=== PATIENT | female | born 1985 | race Caucasian/White ===

== ENCOUNTER 2017-04-07 10:19 | Emergency (ER) | payer BC ==
[2017-04-07 10:40] VITALS: BP 125/72
[2017-04-07] MEDS ORDERED: Albuterol/Ipratropium NEB.SOL* Albuterol 2.5 MG/Ipratropium 0.5 MG 3 ML INH ONE (10:51)
--- NOTE | 2017-04-07 10:53 | UC ---
Mei Garrett Thomas, scribed for Leilani Whiting MD on 04/07/17 at 1052 . Respiratory Complaint HPI - HPI Summary HPI Summary: The pt is a 31 y/o F with a Hx of asthma presenting to Urgent Care c/o labored breathing and feeling tight in lungs that she first noticed last night. The patient describes a feeling in her chest similar to heartburn that often occurs as she is having an asthma attack. 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 Pt denies any pain. She has never been on steroids for her asthma. no hospitalizations or intubations. Pt stats feels like her typical asthma which is triggered by stress. No abd pain. No n/v/d. No serna, uri sx Patients medication reviewed this visits - History of Current Complaint Chief Complaint: UCRespiratory Stated Complaint: ASTHMA Time Seen by Provider: 04/07/17 10:44 Hx Obtained From: Patient Hx Last Menstrual Period: iud Onset/Duration: Lasting Days - 1, Still Present Timing: Constant Severity Initially: Moderate Pain Intensity: 0 Pain Scale Used: 0-10 Numeric Aggravating Factors: Deep Breaths Alleviating Factors: Nothing Associated Signs And Symptoms: Positive: Dyspnea. Negative: Fever - Allergies/Home Medications Allergies/Adverse Reactions: Allergies Allergy/AdvReac Type Severity Reaction Status Date / Time No Known Allergies Allergy Verified 01/19/13 19:14 Home Medications: Home Medications Albuterol HFA INHALER* [Ventolin HFA Inhaler*] 1 puff INH Q4H PRN 04/07/17 [ History Confirmed 04/07/17] PMH/Surg Hx/FS Hx/Imm Hx Previously Healthy: No - NEGATIVE: DM Respiratory History: Asthma - Surgical History Surgical History: Yes Surgery Procedure, Year, and Place: sinus surgery age 13 - Family History Known Family History: Positive: Respiratory Disease - athma in siblings - Social History Occupation: Employed Full-time Lives: With Family Alcohol Use: Weekly Substance Use Type: Marijuana Substance Use Comment - Amount & Last Used: once a week Smoking Status (MU): Current Some Day Smoker Type: Cigarettes Amount Used/How Often: a few cigarettes a week Review of Systems Constitutional: Negative Respiratory: Other - tight breathing Cardiovascular: Other - Feeling similar to heartburn Neurological: Other - Dizziness Is Patient Immunocompromised?: No All Other Systems Reviewed And Are Negative: Yes Physical Exam Triage Information Reviewed: Yes Appearance: Well-Appearing, No Pain Distress, Well-Nourished Vital Signs: Initial Vital Signs Temp 98.3 F 04/07/17 10:37 Pulse 88 04/07/17 10:37 Resp 18 04/07/17 10:37 BP 125/72 04/07/17 10:37 Pulse Ox 100 04/07/17 10:37 Vital Signs Reviewed: Yes Eye Exam: Normal Eyes: Positive: Conjunctiva Clear. Negative: Discharge ENT Exam: Normal ENT: Positive: Normal ENT inspection, Hearing grossly normal, Pharynx normal, TMs normal Dental Exam: Normal Neck exam: Normal Neck: Positive: Supple, Nontender, No Lymphadenopathy Respiratory Exam: Normal Respiratory: Positive: Chest non-tender, No respiratory distress, No accessory muscle use, Wheezing - few scattered Cardiovascular Exam: Normal Cardiovascular: Positive: RRR, No Murmur, Pulses Normal Abdominal Exam: Normal Abdomen Description: Positive: Nontender, No Organomegaly, Soft Bowel Sounds: Positive: Present Musculoskeletal Exam: Normal Neurological Exam: Normal Neurological: Positive: Alert Psychological Exam: Normal Skin Exam: Normal UC Diagnostic Evaluation - Laboratory O2 Sat by Pulse Oximetry: 100 Diagnostic Studies Comment: EKG: Obtained at 10:53. Sinus rhythm. [address] or T changes. Re-Evaluation - Re-Evaluation First Eval Re-Evaluation Time: 11:26 Change: Improved Comment: Pt states feels "much better'. No wheeze. will give Rx albuterol with spacer. return precautions. pt comfortable and in agreement with plan Respiratory Course/Dx - Course Course Of Treatment: The patient is a 31 year old female with a Hx of asthma complaining of labored breathing that she first noticed yesterday. Pt well appearing with stable VS. Pt with few scattered wheeze. will give neb and reassess. pt comfortable with plan - Differential Dx/Diagnosis Provider Diagnoses: asthma Discharge - Discharge Plan Condition: Stable Disposition: HOME Prescriptions: Albuterol HFA INHALER* [Ventolin HFA Inhaler*] 1 - 2 puff INH Q4H PRN #1 mdi PRN Reason: wheeze Spacer/Aerosol-Holding Chamber [Aerochamber Mini Aerosol] 1 mis XX Q4HR PRN #1 mis PRN Reason: wheeze Patient Education Materials: Asthma (ED) Forms: *Work Release Referrals: Gualberto Arroyo MD [Primary Care Provider] - Additional Instructions: - Stay well hydrated. Drink plenty of non-alcoholic, non-caffinated beverages - Use your inhaler - 2 puffs every 4 hours today and then every 4 hours as needed - Contact your doctor to schedule a follow-up appointment. Contact your doctor, return here, or go to the emergency department with any questions or concerns The documentation as recorded by the Mei schwarz Thomas accurately reflects the service I personally performed and the decisions made by , Leilani Whiting MD.
== END 2017-04-07 12:00 | disposition home or self-care (01) ==
LOC: UCEAST 10:19
DX: J45.909 Unspecified asthma, uncomplicated (principal); F17.210 Nicotine dependence, cigarettes, uncomplicated
CPT/HCPCS: 93005; 99212; A9270-GY; G0463